=== PATIENT | male | born 1985 | race Caucasian/White ===

== ENCOUNTER 2021-05-07 07:32 | Emergency (ER) | payer SELFPAY ==
[~2021-05-07] VITALS: Ht 175.3 cm; Wt 68.1 kg
[2021-05-07 07:36] VITALS: BP 135/79
--- NOTE | 2021-05-07 07:55 | PHYS DOC ---
Past History Past Medical History: No Pertinent History Past Surgical History: No Surgical History Smoking: Non-smoker Alcohol Use: Occasionally Drug Use: None Adult General Chief Complaint Chief Complaint: LACERATION/AVULSION HPI HPI Patient is a 35-year-old male presenting for left hand laceration. Reports he cut the dorsal portion of his left hand over his pointer finger knuckle when he was trying to cut a household items while at home prior to work. Onset was just prior to arrival. He put a cloth immediately on laceration site which stopped the bleeding and presented to our ER for evaluation. No changes in motor or sensory or neuro function. He smokes tobacco and weed no other alcohol or illicit drug use. Denies any significant medical issues, no medications, no blood thinners Review of Systems Review of Systems Fourteen body systems of review of systems have been reviewed. See HPI for pertinent positives and negative responses, other sandoval all other systems are negative, non-pertinent or non-contributory Allergies Allergies Allergies Coded Allergies Type Severity Reaction Last Updated Verified No Known Allergies Allergy Unknown 03/04/14 Yes Physical Exam Physical Exam Constitutional: Well developed, well nourished, no acute distress, non-toxic appearance. HENT: Normocephalic, atraumatic, bilateral external ears normal, oropharynx moist, no oral exudates, nose normal. Eyes: PERRLA, EOMI, conjunctiva normal, no discharge. Neck: Normal range of motion, no tenderness, supple, no stridor. Cardiovascular: Heart rate regular per monitor Lungs & Thorax: No respiratory distress or accessory muscle use, bilateral chest rise Abdomen: Abdomen soft, non-tender, bowel sounds present in all quadrants, no guarding or rebound, nonacute abdomen. Skin: Warm, dry, no erythema, no rash. 1 cm linear laceration with well demarcated borders and no obvious underlying tendon/muscle involvement Back: No tenderness, no CVA tenderness. Extremities: No tenderness, no cyanosis, no clubbing, ROM intact, no edema. 2+ radial pulse of left hand. No Knievel sign Neurologic: Alert and oriented X 3, medial radial and ulnar nerves intact to left upper extremity, normal motor & sensory function, no focal deficits noted. Psychologic: Affect normal, judgement normal, mood normal. EKG EKG [] Radiology/Procedures Radiology/Procedures [] Heart Score C/O Chest Pain: No Risk Factors: Risk Factors: DM, Current or recent (<one month) smoker, HTN, HLP, family history of CAD, obesity. Risk Scores: Risk Factors: DM, Current or recent (<one month) smoker, HTN, HLP, family histo ry of CAD, obesity. Course & Med Decision Making Course & Med Decision Making Vitals stable. HPI and physical examination nonconcerning for any emergent or surgical issues. Verbal consent obtained to perform suture repair of left knuckle that patient tolerated without any issues No indication for antibiotics. Tetanus out of date and updated today at this visit Typical wound and laceration precautions given with instructions for close PCP follow-up for evaluation and suture repair in upcoming 7 to 10 days time Dragon Disclaimer Dragon Disclaimer This electronic medical record was generated, in whole or in part, using a voice recognition dictation system. Laceration Repair Lac Repair Indication: Knuckle laceration Procedure: The patient was placed in the appropriate position and anesthesia around the dorsal portion of the knuckle was applied after irrigating hand under copious amounts of tap water, a total of 3 cc 1% lidocaine used along laceration borders. The area was then cleaned with an alcohol prep pad and thoroughly evaluated with no underlying muscle tendon or tissue involvement, no foreign bodies. The laceration was closed using a total of x4 simple interrupted sutures using nonabsorbable 5.0 Prolene. The wound area was then dressed with typical wound covering and laceration care instructions provided. Total repaired wound length: 1 cm. Other Items: 1% lidocaine The patient tolerated the procedure well. Complications: None. Departure Departure: Impression: Primary Impression: Laceration of hand without complication, excluding fingers Disposition: 01 HOME / SELF CARE / HOMELESS Condition: STABLE Referrals: PCP,NO (PCP) Additional Instructions: You were seen for a laceration. Keep the area clean and dry. You should return to the ED or your PCP office to get your x4 sutures removed in 7-10 days. Return to the ED immediately if you develop any signs of infection like increased pain, redness, fever, or purulent (pus) drainage. Do not take baths, submerge the wound, or use a hot tub until your stitches are removed and the wound is healed. TIMOTHY FRANKEL DO May 07, 2021 07:55
[2021-05-07] MEDS: DIPH,PERTUSS(ACELL),TET VAC/PF 0.5 ML SYRINGE. VAX IM ONE (08:25)
== END 2021-05-07 08:29 | disposition home or self-care (01) ==
LOC: ER 07:56
DX: S61.412A Laceration without foreign body of left hand, initial encounter (principal); W26.8XXA Contact with other sharp object(s), not elsewhere classified, initial encounter; Y93.89 Activity, other specified; Y92.89 Other specified places as the place of occurrence of the external cause; Y99.8 Other external cause status
CPT/HCPCS: 12001; 90471; 90715; 99283

== ENCOUNTER 2021-05-22 09:15 | Emergency (ER) | payer SELFPAY ==
[~2021-05-22] VITALS: Ht 175.3 cm; Wt 68.1 kg
[2021-05-22 09:32] VITALS: BP 135/79
--- NOTE | 2021-05-22 09:50 | PHYS DOC ---
Past History Past Medical History: No Pertinent History Past Surgical History: Other Additional Past Surgical Histo: knee, wrist Smoking: Non-smoker Alcohol Use: None Drug Use: None General Adult EDM: Chief Complaint: SUTURE/STAPLE REMOVAL HPI: HPI: Patient is a 35 year old male who presents for suture removal. He had cut the skin overlying his 2nd MCP on the left and had repaired. It has been healing well. He has no concerns. Review of Systems: Review of Systems: Constitutional: No fever/chills. Integument: Healing wound. No discharge, redness, or swelling. Neurologic: Denies weakness or sensory changes Allergies: Allergies: Allergies Coded Allergies Type Severity Reaction Last Updated Verified No Known Allergies Allergy Unknown 03/04/14 Yes Physical Exam: PE: Constitutional: Well developed, well nourished, no acute distress, non-toxic appearance. [] HENT: Normocephalic, atraumatic, Eyes:conjunctiva normal, no discharge. [] Necksupple, no stridor. [] Cardiovascular:Heart rate regular [] Lungs & Thorax: Normal work of breathing [] Skin: Warm, dry, no erythema, no rash. 2 cm laceration over left second MCP is well-healing. Sutures removed. [] Extremities: Good dray driver strength, wrist extension, extension and flexion of the fingers all intact. Cap refill less than 2 seconds. Neurologic: Alert and oriented X 3, normal motor function, normal sensory function, no focal deficits noted. [] Current Patient Data: Vital Signs: Vital Signs Date Time Temp Pulse Resp B/P (MAP) Pulse Ox O2 Delivery O2 Flow Rate FiO2 05/22/21 09:32 135/79 (97) EKG: EKG: [] Radiology/Procedures: Radiology/Procedures: [] Heart Score: C/O Chest Pain: No Risk Factors: Risk Factors: DM, Current or recent (<one month) smoker, HTN, HLP, family history of CAD, obesity. Risk Scores: Score 0 - 3: 2.5% MACE over next 6 weeks - Discharge Home Score 4 - 6: 20.3% MACE over next 6 weeks - Admit for Clinical Observation Score 7 - 10: 72.7% MACE over next 6 weeks - Early Invasive Strategies Course & Med Decision Making: Course & Med Decision Making Pertinent Labs and Imaging studies reviewed. (See chart for details) Patient is a 35-year-old male who presents for suture removal. Wound is well- appearing. Sutures removed. Dragon Disclaimer: Dragon Disclaimer: This electronic medical record was generated, in whole or in part, using a voice recognition dictation system. Departure Departure: Impression: Primary Impression: Visit for suture removal Disposition: HOME / SELF CARE / HOMELESS Condition: STABLE Referrals: PCP,NO (PCP) Additional Instructions: Watch out for redness, swelling or drainage from the site. Return to medical attention if these occur. HAMZAH BROWN MD May 22, 2021 09:50
== END 2021-05-22 09:50 | disposition home or self-care (01) ==
LOC: ER 09:15
DX: Z48.02 Encounter for removal of sutures (principal)
CPT/HCPCS: 99281